=== PATIENT | male | born 1970 | race African-American/Black ===

== ENCOUNTER 2017-07-18 01:12 | Emergency (ER) | payer SELFPAY ==
[~2017-07-18] VITALS: Ht 167.6 cm; Wt 68.0 kg
[2017-07-18 01:15] VITALS: BP 134/69
== END 2017-07-18 01:23 | disposition home or self-care (01) ==
LOC: ER 01:15
DX: M79.671 Pain in right foot (principal); M79.672 Pain in left foot
CPT/HCPCS: A4606; Z7610